=== PATIENT | male | born 1975 | race Caucasian/White ===

== ENCOUNTER 2020-09-17 10:43 | Day surgery (SDC) | payer OTHER ==
[~2020-09-17 10:43] MED LIST: EPINEPHrine 1 MG/ML 30 ML MDV IRR SCH; Lactated Ringers 1,000 ML IV SCH; Lidocaine 1%/Sod Bicarbonate in NS 8.4% 1 ML Syringe IDERM PRN; Sodium Chloride 0.9% 10 ML Syringe FLUSH PRN
[2020-09-17] MEDS ORDERED: Bupivacaine 0.25% 10 ML SDV ONE (11:09)
[2020-09-17] MEDS ORDERED: Lactated Ringers 1,000 ML ONE (11:25)
[2020-09-17] MEDS ORDERED: ceFAZolin 1 GM Vial ONE ×2 (11:25→12:10)
[2020-09-17] MEDS ORDERED: Ketorolac 30 MG/ML SDV ONE (11:25)
[2020-09-17] MEDS ORDERED: Ondansetron 4 MG/2 ML SDV ONE (11:25)
[2020-09-17] MEDS ORDERED: Propofol 200 MG/20 ML SDV ONE ×2 (11:25→12:10)
[2020-09-17] MEDS ORDERED: Lidocaine 1% 4 ML ONE (11:26)
[2020-09-17] MEDS ORDERED: Midazolam 1 MG/ML 2 ML SDV ONE (11:26)
[2020-09-17] MEDS ORDERED: fentaNYL 100 MCG/2 ML SDV ONE (11:26)
[2020-09-17] MEDS ORDERED: Ketamine 500 mg/10 ML MDV ONE (12:10)
[2020-09-17] MEDS ORDERED: HYDROmorphone 0.5 MG/0.5 ML Syringe IVPUSH PRN (13:07)
[2020-09-17] MEDS ORDERED: fentaNYL 100 MCG/2 ML SDV IVPUSH PRN (13:07)
[2020-09-17] MEDS ORDERED: Ondansetron 4 MG/2 ML SDV IVPUSH PRN (13:07)
--- NOTE | 2020-09-17 13:13 | PCM.POSTAN ---
POST ANESTHESIA ASSESSMENT - MENTAL STATUS Mental Status: Alert, Oriented - VITAL SIGNS Vital Signs: Last Vital Signs Temp 36.2 C 09/17/20 11:00 Pulse 81 09/17/20 11:00 Resp 18 09/17/20 11:00 BP 128/75 09/17/20 11:00 Pulse Ox 96 09/17/20 11:00 - RESPIRATORY Respiratory Status: Respiratory Rate WNL, Airway Patent, O2 Saturation Stable, Supplemental Oxygen - CARDIOVASCULAR CV Status: Pulse Rate WNL, Blood Pressure Stable - GASTROINTESTINAL GI Status: No Symptoms - PAIN Pain Score: 0 - POST OP HYDRATION Hydration Status: Adequate & Stable
--- NOTE | 2020-09-17 13:13 | PCM.PREANE ---
Preanesthetic Assessment - Procedure Proposed Procedure: Left Knee KVA - Anesthesia/Transfusion/Family Hx Anesthesia History: Prior Anesthesia Without Reaction Family History of Anesthesia Reaction: No - Review of Systems General: No Symptoms Pulmonary: No Symptoms Cardiovascular: No Symptoms Gastrointestinal: No Symptoms Neurological: Other (low back pain) Other: Reports: None (Obesity) - Physical Assessment NPO Status Date: 09/16/20 NPO Status Time: 23:00 Vital Signs: Last Vital Signs Temp 36.2 C 09/17/20 11:00 Pulse 81 09/17/20 11:00 Resp 18 09/17/20 11:00 BP 128/75 09/17/20 11:00 Pulse Ox 96 09/17/20 11:00 Height: 1.96 m Weight: 131.995 kg ASA Class: 2 Mental Status: Alert & Oriented x3 Airway Class: Mallampati = 1 Dentition: Reports: Normal Dentition Thyro-Mental Finger Breadths: 3 Mouth Opening Finger Breadths: 3 ROM/Head Extension: Full Lungs: Clear to Auscultation, Normal Respiratory Effort Cardiovascular: Regular Rate, Regular Rhythm - Lab Values: Laboratory Last Values MRSA (PCR) Negative 09/11/20 12:35 - Allergies Allergies/Adverse Reactions: Allergies Allergy/AdvReac Type Severity Reaction Status Date / Time No Known Allergies Allergy Verified 09/17/20 11:58 - Anesthesia Plan Pre-Op Medication Ordered: Anxiolytic - Acknowledgements Anesthesia Type Planned: General Anesthesia Pt an Appropriate Candidate for the Planned Anesthesia: Yes Alternatives and Risks of Anesthesia Discussed w Pt/Guardian: Yes Pt/Guardian Understands and Agrees with Anesthesia Plan: Yes PreAnesthesia Questionnaire HEENT History: Reports: None Cardiovascular History: Reports: None Respiratory History: Reports: Other (See Below) Other Respiratory History: SNORING Genitourinary History: Reports: None, Other (See Below) Other Genitourinary History: BREAST MASS SURGICAL GARMENT FITTER History: Reports: None Musculoskeletal History: Reports: Other (See Below) Other Musculoskeletal History: LUMBAGO, MUSCLE SPASM, LOW BACK PAIN Neurological History: Reports: None Psychiatric History: Reports: None Endocrine/Metabolic History: Reports: None Hematologic History: Reports: None Immunologic History: Reports: None Oncologic (Cancer) History: Reports: None Dermatologic History: Reports: Eczema - Infectious Disease History Infectious Disease History: Reports: None - Past Surgical History Head Surgeries/Procedures: Reports: None HEENT Surgical History: Reports: None Respiratory Surgical History: Reports: None GI Surgical History: Reports: Hernia, Inguinal Female Surgical History: Reports: None Male Surgical History: Reports: None Endocrine Surgical History: Reports: None Neurological Surgical History: Reports: None Musculoskeletal Surgical History: Reports: None Oncologic Surgical History: Reports: None Dermatological Surgical History: Reports: None - SUBSTANCE USE Tobacco Use Status *Q: Never Tobacco User Recreational Drug Use History: No - HOME MEDS Home Medications: Home Meds Cyclobenzaprine [Flexeril] 10 mg PO TID PRN 09/16/20 [History] Triamcinolone Acetonide [Triamcinolone Acetonide 0.5%] 1 dose TOP BID 09/16/20 [History] Zolpidem [Ambien] 10 mg PO BEDTIME PRN 09/16/20 [History] Acetaminophen/HYDROcodone [Dema 325-5 MG] 1 - 2 tab PO Q6H PRN #15 tablet 09/17/20 [Rx] Aspirin [Aspirin EC] 325 mg PO BID #84 tab 09/17/20 [Rx] - CURRENT (IN HOUSE) MEDS Current Meds: Current Medications Epinephrine HCl (Adrenalin) 3 mg IRR ONETIME FLOWER Stop: 09/17/20 18:00 Fentanyl (Sublimaze) 50 mcg IVPUSH Q5M PRN PRN Reason: Pain Stop: 09/17/20 18:00 Hydromorphone HCl (Dilaudid) 0.5 mg IVPUSH Q10M PRN PRN Reason: Pain (severe 7-10) Stop: 09/17/20 18:00 Lactated Ringer's (Ringers, Lactated) 1,000 mls @ 125 mls/hr IV ASDIRECTED [facility] Stop: 09/17/20 23:00 Last Admin: 09/17/20 11:57 Dose: 125 mls/hr Documented by: Lidocaine/Sodium Bicarbonate (Buffered Lidocaine 1% In Ns 8.4%) 0.25 ml IDERM ONETIME PRN PRN Reason: Prior to IV Start Stop: 09/17/20 18:00 Last Admin: 09/17/20 11:00 Dose: 0.25 ml Documented by: Ondansetron HCl (Zofran) 4 mg IVPUSH ONETIME PRN PRN Reason: Nausea/Vomiting Stop: 09/17/20 18:00 Sodium Chloride (Saline Flush) 10 ml FLUSH ASDIRECTED PRN PRN Reason: Keep Vein Open Stop: 09/17/20 18:00 Discontinued Medications Bupivacaine HCl (Sensorcaine-Mpf 0.25%) Confirm Administered Dose 10 ml .ROUTE .STK-MED ONE Stop: 09/17/20 11:10 Cefazolin Sodium (Ancef) Confirm Administered Dose 2 gm .ROUTE .STK-MED ONE Stop: 09/17/20 11:26 Cefazolin Sodium (Ancef) Confirm Administered Dose 1 gm .ROUTE .STK-MED ONE Stop: 09/17/20 12:11 Fentanyl (Sublimaze) Confirm Administered Dose 100 mcg .ROUTE .ST-MED ONE Stop: 09/17/20 11:27 Lactated Ringer's (Ringers, Lactated) Confirm Administered Dose 1,000 mls @ as directed .ROUTE .ST-MED ONE Stop: 09/17/20 11:26 Lidocaine HCl (Xylocaine-Mpf 1%) Confirm Administered Dose 4 mls @ as directed .ROUTE .ST-MED ONE Stop: 09/17/20 11:27 Ketamine HCl (Ketalar) Confirm Administered Dose 500 mg .ROUTE .ST-MED ONE Stop: 09/17/20 12:11 Ketorolac Tromethamine (Toradol) Confirm Administered Dose 30 mg .ROUTE .STK-MED ONE Stop: 09/17/20 11:26 Midazolam HCl (Versed 1 Mg/Ml) Confirm Administered Dose 2 mg .ROUTE .ST-MED ONE Stop: 09/17/20 11:27 Ondansetron HCl (Zofran) Confirm Administered Dose 4 mg .ROUTE .ST-MED ONE Stop: 09/17/20 11:26 Propofol (Diprivan 20 Ml) Confirm Administered Dose 400 mg .ROUTE .STK-MED ONE Stop: 09/17/20 11:26 Propofol (Diprivan 20 Ml) Confirm Administered Dose 200 mg .ROUTE .STK-MED ONE Stop: 09/17/20 12:11
--- NOTE | 2020-09-17 15:20 | PCM48HPAN ---
Post Anesthesia Note - EVALUATION WITHIN 48HRS OF ANESTHETIC Vital Signs in Normal Range: Yes Patient Participated in Evaluation: Yes Respiratory Function Stable: Yes Airway Patent: Yes Cardiovascular Function Stable: Yes Hydration Status Stable: Yes Pain Control Satisfactory: Yes Nausea and Vomiting Control Satisfactory: Yes Mental Status Recovered: Yes Vital Signs: Last Vital Signs Temp 36.2 C 09/17/20 14:30 Pulse 61 09/17/20 14:30 Resp 14 09/17/20 14:30 BP 124/72 09/17/20 14:30 Pulse Ox 98 09/17/20 14:30 - COMMENTS/OBSERVATIONS Free Text/Narrative:: no anesthesia complications noted
--- NOTE | 2020-09-27 18:03 | PCM.OPNOTE ---
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
--- NOTE | 2020-09-27 18:30 | OR ---
DATE OF OPERATION: 09/17/2020 SURGEON: Marcello Bee MD OPERATION PERFORMED: Left knee video arthroscopy, partial medial meniscectomy, chondroplasty medial femoral condyle, and partial synovectomy. PREOPERATIVE DIAGNOSIS: Left knee medial meniscus tear. 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 ANESTHESIA: General LMA with local. ANESTHESIA PROVIDER: Donna Dent. TOWN MANAGER: Jenn Renteria PA-C. ESTIMATED BLOOD LOSS: Less than 5 mL. COMPLICATIONS: None. CONDITION: Stable. DESCRIPTION OF PROCEDURE: The patient was identified in the preoperative holding area. Proper site was marked and identified by the surgeon. The patient was taken back to the operating theater, where after adequate anesthesia the patient's right lower extremity was placed in a well leg pop. Left lower extremity had a nonsterile tourniquet applied and was placed in a C-clamp pop. Foot of bed was then lowered. Left lower extremity was then sterilely prepped and draped in the usual sterile fashion. OR time-out was performed. The patient received 2 g IV Ancef. The left lower extremity was exsanguinated, tourniquet was insufflated to 250 mmHg. Standard anterior lateral portal incision was made. Scope trocar was introduced. The patient was noted to have grade 2 chondromalacia of the patellofemoral joint as well as significant synovial hypertrophy with fat pad impingement. Attention was turned to the medial compartment. With the use of a spinal needle anterior medial portal was created. Attention was turned to the medial compartment. The patient was noted to have degenerative tear of the posterior third horn of the medial meniscus with an unstable rim. The patient was noted to have significant grade 3/4 chondromalacia changes in medial femoral condyle as well as grade 2/3 chondromalacia of the medial tibial plateau. At this time, a partial medial meniscectomy was performed of the posterior third horn of the medial meniscus back to a stable rim of the undersurface portion. I did then perform a chondroplasty of all loose fragments off the medial femoral condyle as well back to a stable rim cartilage. ACL was intact in the notch. Lateral compartment showed minimal changes. At this time, attention was turned to the fat pad and partial fat pad resection. Partial synovectomy was performed. At this time, excess saline was drained from the knee. 3-0 nylon simple sutures used for closure of the skin. The patient had a sterile soft dressing applied and sent to PACU in stable condition. JERONIMO /[id number]
== END 2020-09-17 15:00 | disposition home or self-care (01) ==
LOC: JD.SDS 10:43
PROVIDERS: ATTEND Orthopaedic Surgery
DX: M23.222 Derangement of posterior horn of medial meniscus due to old tear or injury, left knee (principal); M94.262 Chondromalacia, left knee; M25.862 Other specified joint disorders, left knee; G47.00 Insomnia, unspecified; E66.9 Obesity, unspecified; M62.830 Muscle spasm of back; Z79.899 Other long term (current) drug therapy; Z68.35 Body mass index [BMI] 35.0-35.9, adult
CPT/HCPCS: 29875; 29881; 87641; J0690; J1885; J2001; J2250; J2405; J2704; J3010; J3490; J7120; 01400